=== PATIENT | female | born 1950 | race Caucasian/White ===

== ENCOUNTER 2018-03-21 19:41 | Emergency (ER) | payer MEDICARE ==
[~2018-03-21] VITALS: Ht 157.5 cm; Wt 77.0 kg
[~2018-03-21 19:41] MED LIST: DIOV80TA4 PO; FENO50TA PO; FOSA35TA2 PO; LEVEMIR SQ; PROT40TA PO; ROSU5 PO; SUCR1TAB6 PO; VITA400C28 PO; ZOFR4SOL PO
[2018-03-21 19:46] VITALS: BP 169/82; PULSE 101; RESP 18; TEMP 97.9; O2SAT 96
--- NOTE | 2018-03-21 21:08 | PD ---
HPI Chief Complaint: Abnormal Results Time Seen by Provider: 21:06 Travel History International Travel<30 days: No Contact w/Intl Traveler<30days: No Traveled to known affect area: No History of Present Illness HPI Patient has a long-standing list of complaints that are mainly unhappiness towards her primary care doctor [facility] F[facility]. Finally after approximately 30 minutes of redirecting and questioning, the patient states that she noted blood in her stool, and crampy abdominal pain, denies being on any blood thinners. Denies any nausea or vomiting associated with these symptoms... Patient is very inquisitive however she keeps asking abouT previous complaints and not any active complaints. For example the patient stated that she has MRSA on both legs and that she has been on 3 different antibiotics and that she was told that she was resistant. Patient does not have any red rash or rash anywhere in her body, she was merely bringing up a historical fact. Patient did the same about multiple other complaints including fever, which after repeated temperature taken in triage and in department the patient was not febrile. States allergy to chlorpromazine metoclopramide and prochlorperazine Past medical history significant for tonsillectomy, corrective lenses, Kalen- Low, hypercholesterolemia, hypertension, gastroparesis, esophageal dilations, appendectomy, cholecystectomy, GERD, partial hysterectomy, diabetes, depression , claustrophobia, anxiety, shingles, previous MRSA infections to her lower extremities PFSH Past Medical History Arthritis: Yes (OSTEOARTHRITIS) Anxiety: Yes Depression: Yes High Cholesterol: Yes Diabetes: Yes Diminished Hearing: No GERD: Yes (GERD) Genitourinary: No Hypertension: Yes Musculoskeletal: Yes (CARPAL TUNNEL) Respiratory: No Seizures: Yes (REACTION TO COMPAZINE) Menopausal: Yes Tubal Ligation: Yes (1977) Past Surgical History Abdominal Surgery: Yes (APPENDECTOMY, CHOLECYSTECTOMY) Appendectomy: Yes Cholecystectomy: Yes Gynecologic Surgery: Yes (PARTIAL HYSTERECTOMY, TUBAL LIGATION) Hysterectomy: Yes ( ) Oral Surgery: Yes (TONSILLECTOMY) Tonsillectomy: Yes Other Surgery: Yes (1979--RHINOPLASTY) Social History Alcohol Use: No Tobacco Use: No Substance Use: No Allergies-Medications (Allergen,Severity, Reaction): Coded Allergies: chlorpromazine (Verified Allergy, Severe, SEIZURES, 03/21/18) metoclopramide (Verified Allergy, Severe, SEIZURE, 03/21/18) prochlorperazine (Verified Allergy, Severe, SEIZURES, 03/21/18) Reported Meds & Prescriptions Reported Meds & Active Scripts Active Reported Amlodipine-Valsartan 10-320 Mg Tab 1 Tab PO DAILY Tresiba Flextouch Pen Inj (Insulin Degludec Inj) 300 unit/3 ML Pen 40 Units SQ DAILY Tradjenta (Linagliptin) 5 Mg Tab 5 Mg PO DAILY Allopurinol 300 Mg Tab 300 Mg PO DAILY Simvastatin 40 Mg Tab 40 Mg PO HS Review of Systems Gastrointestinal: Positive: Abdominal Pain (Single crampy abdominal episode, nonradiating, not repeatable), Other (Blood in stool) Physical Exam Narrative GENERAL: SKIN: Warm and dry. No evidence of any cellulitic/lymphangitic/ changes to her bilateral lower extremities. HEAD: Atraumatic. Normocephalic. EYES: Pupils equal and round. No scleral icterus. No injection or drainage. ENT: No nasal bleeding or discharge. Mucous membranes pink and moist. NECK: Trachea midline. No JVD. CARDIOVASCULAR: Regular rate and rhythm. RESPIRATORY: No accessory muscle use. Clear to auscultation. Breath sounds equal bilaterally. GASTROINTESTINAL: Abdomen soft, non-tender, nondistended. LORRAINE Hooper at bedside , external rectal exam showed non-thrombotic hemorrhoids also nonbleeding. Digital rectal exam did not reveal any gross blood, and guaiac was negative MUSCULOSKELETAL: Extremities without clubbing, cyanosis, or edema. No obvious deformities. NEUROLOGICAL: Awake and alert. No obvious cranial nerve deficits. Motor grossly within normal limits. Five out of 5 muscle strength in the arms and legs. Normal speech. PSYCHIATRIC: Appropriate mood and affect; insight and judgment normal. Data Data Last Documented VS Vital Signs Date Time Temp Pulse Resp B/P (MAP) Pulse Ox O2 Delivery O2 Flow Rate FiO2 03/21/18 21:10 Room Air 03/21/18 19:46 97.9 101 18 169/82 (111) 96 Orders Orders Complete Blood Count With Diff (03/21/18 21:31) Comprehensive Metabolic Panel (03/21/18 21:31) Prothrombin Time / Inr (Pt) (03/21/18 21:31) Act Partial Throm Time (Ptt) (03/21/18 21:31) Labs Laboratory Tests Test 6/3/18 22:12 White Blood Count 8.0 TH/MM3 Red Blood Count 4.81 MIL/MM3 Hemoglobin 13.3 GM/DL Hematocrit 39.9 % Mean Corpuscular Volume 82.9 FL Mean Corpuscular Hemoglobin 27.6 PG Mean Corpuscular Hemoglobin Concent 33.3 % Red Cell Distribution Width 13.3 % Platelet Count 279 TH/MM3 Mean Platelet Volume 7.7 FL Neutrophils (%) (Auto) 64.6 % Lymphocytes (%) (Auto) 24.6 % Monocytes (%) (Auto) 8.1 % Eosinophils (%) (Auto) 2.0 % Basophils (%) (Auto) 0.7 % Neutrophils # (Auto) 5.0 TH/MM3 Lymphocytes # (Auto) 2.0 TH/MM3 Monocytes # (Auto) 0.7 TH/MM3 Eosinophils # (Auto) 0.2 TH/MM3 Basophils # (Auto) 0.1 TH/MM3 CBC Comment DIFF FINAL Differential Comment MDM Medical Decision Making Medical Screen Exam Complete: Yes Emergency Medical Condition: Yes Medical Record Reviewed: Yes Differential Diagnosis Rectal bleed versus GI bleed versus anemia versus pancreatitis versus hepatitis versus electrolyte abnormality Narrative Course Patient had a negative guaiac, H&H was stable and did not show any evidence of anemia, patient's abdominal exam benign on reevaluation as well as an initial examination. Additionally the patient has no cellulitic changes to her bilateral lower extremities. All of these different complaints at the patient brought on today are all chronic and has been going on for at least 6 weeks. Patient is recommended to follow-up with her primary care doctor [facility], should she be unhappy with his care and she can switch to any other physician. However today there are no urgent nor emergent conditions that require further evaluation. Diagnosis Primary Impression: Medical clear Patient Instructions: General Instructions Additional Instructions: It is recommended that you follow-up with your doctor or with your choice of new DrDarrick THE case MAYBE. Today YOU did not have any blood on your stool, you are not anemic, he had normal electrolytes, you had normal liver enzymes, you had normal pancreatic enzymes. Disposition: 01 DISCHARGE HOME Condition: Stable Roshan Yoder MD Mar 21, 2018 21:08
[2018-03-21] MEDS ORDERED: INSU1INJ14 SQ (22:20)
[2018-03-21] MEDS ORDERED: SIMV40TA PO (22:20)
[2018-03-21] MEDS ORDERED: TRAD5TAB PO (22:20)
[2018-03-21] MEDS ORDERED: ALLO300T2 PO (22:20)
[2018-03-21] MEDS ORDERED: AMLO-172 PO (22:20)
[2018-03-21 22:28] LABS: BASOPHIL # 0.1 TH/MM3 (0-0.2); BASOPHIL % 0.7 % (0.0-2.0); EOSINOPHIL # 0.2 TH/MM3 (0-0.4); HEMATOCRIT 39.9 % (35.0-46.0); HEMOGLOBIN 13.3 GM/DL (11.6-15.3); LYMPH % 24.6 % (9.0-44.0); MEAN CELL VOLUME 82.9 FL (80.0-100.0); MEAN CORPUSCULAR HEMOGLOBIN 27.6 PG (27.0-34.0); MEAN CORPUSCULAR HGB CONC 33.3 % (32.0-36.0); MEAN PLATELET VOLUME 7.7 FL (7.0-11.0); MONO % 8.1 % (0.0-8.0); MONOCYTE # 0.7 TH/MM3 (0-0.9); NEUT % 64.6 % (16.0-70.0); PLATELET COUNT 279 TH/MM3 (150-450); RED BLOOD COUNT 4.81 MIL/MM3 (4.00-5.30); RED CELL DISTRIBUTION WIDTH 13.3 % (11.6-17.2)
[2018-03-21 22:35] LABS: CHLORIDE 105 MEQ/L (98-107); SODIUM (NA) 137 MEQ/L (136-145)
[2018-03-21 22:38] LABS: CALCIUM 9.1 MG/DL (8.5-10.1)
[2018-03-21 22:39] LABS: ALBUMIN 3.7 GM/DL (3.4-5.0); BICARBONATE 24.4 MEQ/L (21.0-32.0); BLOOD UREA NITROGEN 18 MG/DL (7-18); GLUCOSE,RANDOM 170 MG/DL (74-106)
[2018-03-21 22:42] LABS: ALT (GPT) 34 U/L (10-53); AST (GOT) 24 U/L (15-37); CREATININE 0.87 MG/DL (0.50-1.00); GLOMERULAR FILTRATION RATE 65 ML/MIN (>89); PROTHROMBIN TIME - PATIENT 10.2 SEC (9.8-11.6)
[2018-03-21 22:43] VITALS: BP 155/77; PULSE 83; RESP 16; O2SAT 97
[2018-03-21 22:43] LABS: TOTAL BILIRUBIN ADULT 0.4 MG/DL (0.2-1.0); TOTAL PROTEIN 7.4 GM/DL (6.4-8.2)
[2018-03-21 22:45] LABS: ALKALINE PHOSPHATASE 88 U/L (45-117)
== END 2018-03-21 22:57 | disposition home or self-care (01) ==
LOC: PHED 19:41
DX: E78.00 Pure hypercholesterolemia, unspecified (principal); I10 Essential (primary) hypertension; K21.9 Gastro-esophageal reflux disease without esophagitis; F41.9 Anxiety disorder, unspecified; F40.240 Claustrophobia; M19.90 Unspecified osteoarthritis, unspecified site; E11.9 Type 2 diabetes mellitus without complications; Z86.69 Personal history of other diseases of the nervous system and sense organs; Z79.899 Other long term (current) drug therapy
CPT/HCPCS: 80053; 85025; 85610; 85730; 99283

== ENCOUNTER 2018-08-27 22:14 | Observation (INO) ==
--- NOTE | 2018-08-27 22:43 | ED ---
HPI General Chief Complaint: Extremity Problem,Nontraumatic Stated Complaint: numbness in both arms/hands/speech issue Time Seen by Provider: 08/27/18 22:36 History of Present Illness HPI Narrative: 68-year-old female presents to the emergency department by private transportation for complaint of multiple concerns. Patient reports all day she has not felt well with increased diaphoresis and intermittent numbness of the hands and arms. No report of altered mentation has had some headache has history of ocular migraines denies any visual disturbance no loss of vision no double vision has had no nausea no vomiting has chronic neck pain with radiculopathy is diabetic with diabetic gastroparesis and diabetic peripheral neuropathy also reports episodic flares of Kalen-Low virus chronic fatigue. Patient states that symptoms have at least been present since noon and presently are essentially resolved except approximately hour ago she noticed symptoms in her right upper extremity that included some tingling in her arm and some numbness of the palm of her hand which resolved and then some numbness to the dorsum of her hand which is also resolved patient earlier had had numbness in the left hand that has resolved. Patient has also noted swelling of her hands today as well, although to a lesser extent at this time. Patient states she has had swelling of her feet for 2 years that "no one can explain". Patient also reports that she had some difficulty finding her words at the same time but that has also completely resolved. No slurring of speech no change in balance no loss of function of the right upper or lower extremity or loss of function of the left upper or lower extremity. No gait disturbance. Patient has had no fever or chills. 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 Patient states she discussed her symptoms with her neighbor who said she might have a TIA and that she should come to the hospital and call her daughter patient states she did not want to call her daughter but was convinced by her neighbor to do so so called her daughter who brings her to the emergency room. Patient has had no difficulty with ambulation but is able to transition from department wheelchair to exam bed without difficulty then stand and change her close wall disturbing fluent speech providing history without difficulty. Patient denies tobacco use or alcohol use. Patient also has history of hypertension and dyslipidemia as well as diabetes. Related Data Home Medications Medication Instructions Recorded Confirmed Tresiba FlexTouch U-100 40 - 80 unit SUBDERMAL BID 07/21/18 08/27/18 linagliptin [Tradjenta] 5 mg PO DAILY 07/21/18 08/27/18 simvastatin 40 mg PO QPM 07/21/18 08/27/18 diltiazem HCl [Cartia XT] 120 mg PO DAILY 08/27/18 08/27/18 irbesartan [Avapro] 300 mg PO DAILY 08/27/18 08/27/18 Allergies Allergy/AdvReac Type Severity Reaction Status Date / Time chlorpromazine Allergy Severe SEIZURES Verified 08/27/18 23:42 metoclopramide Allergy Severe SEIZURE Verified 08/27/18 23:42 prochlorperazine Allergy Severe SEIZURES Verified 08/27/18 23:42 [facility] Social History Social History Substance History: No History of Abuse Second Hand Smoke Exposure: No Smoking Status: Never smoker How Often Do You Have a Drink Containing Alcohol: Never Recent Travel in [facility] within the Last 8 Weeks: No Recent Out of Country Travel within the Last 8 Weeks: No Exam Narrative Exam Narrative: GENERAL: Well-developed well-nourished animated female in no acute distress no respiratory distress GCS 15 NIH SS 0 SKIN: Focused skin assessment warm/dry. HEAD: Atraumatic. Normocephalic. EYES: Pupils equal and round. No scleral icterus. No injection or drainage. ENT: No nasal bleeding or discharge. Mucous membranes pink and moist. NECK: Trachea midline. No JVD. CARDIOVASCULAR: Regular rate and rhythm. No murmur appreciated. RESPIRATORY: No accessory muscle use. Clear to auscultation. Breath sounds equal bilaterally. GASTROINTESTINAL: Abdomen soft, non-tender, nondistended. Hepatic and splenic margins not palpable. MUSCULOSKELETAL: No obvious deformities. No clubbing. No cyanosis. No edema. NEUROLOGICAL: Awake and alert. No obvious cranial nerve deficits. Motor grossly within normal limits. Sensory exam intact. No limb ataxia. No pronator drift. Normal speech. PSYCHIATRIC: Appropriate mood and affect; insight and judgment normal. Course Consultations Consultation #1: discussed with DR Nagel --OBS to [facility] service Initial Documented Vital Signs Pulse Rate 76 08/27/18 22:20 Respiratory Rate 16 08/27/18 22:20 Blood Pressure 180/81 H 08/27/18 22:20 Pulse Oximetry 98 08/27/18 22:20 Last Documented Vital Signs Temperature 98.5 F 08/27/18 22:21 Pulse Rate 78 08/28/18 00:00 Respiratory Rate 16 08/28/18 00:00 Blood Pressure 197/97 H 08/28/18 00:00 Pulse Oximetry 98 08/28/18 00:00 NIH Stroke Scale NIH Stroke Scale Level of Consciousness: 0-Alert Orientation Questions: 0-Answers both correct Responds to Commands: 0-Both tasks correct Gaze Eye Movement: 0-Horizontal movement WNL Visual Domingo: 0-No visual field defect Facial Movement: 0-Normal Motor Functions Arm LEFT: 0-No drift Motor Functions Arm RIGHT: 0-No drift Motor Functions Leg LEFT: 0-No drift Motor Functions Leg RIGHT: 0-No drift Limb Ataxia: 0-No ataxia Sensory Loss: 0-No sensory loss Best Language: 0-Normal Articulation: 0-Normal Extinction or Inattention Sensory: 0-Absent Total: 0 Medical Decision Making MDM Narrative Medical decision making narrative: 68-year-old female with history of diabetes hypertension dyslipidemia anxiety depression chronic fatigue syndrome Kalen- Low virus diabetic neuropathy diabetic gastroparesis and ocular migraines presents to the emergency department for complaint of being plugged with chronic pain and numbness issues and noting since earlier today feeling tired fatigued diaphoretic and noontime having some numbness and tingling of the left upper extremity and then approximate hour ago reportedly having transient numbness tingling of the right upper extremity with possibly a brief episode of expressive aphasia. The symptoms have resolved and patient has no speech issues and no focality on physical exam with an NIH score of 0. Patient is diabetic and denies known history of rhythm disturbance and takes no blood thinning agents. Patient placed on athletic monitor IV access obtained specimens collected and sent for resulting including glucose. CT brain noncontrast ordered. Patient is not showing evidence of any neurologic deficit and is not a stroke alert. Patient returns from CT talking on her cell phone continuously uses right upper extremity to hold phone without difficulty or issues with manipulating the device. CT brain noncontrast is read as no acute process; CBC is automated differential mild white count elevation; basic metabolic panel in normal range with blood sugar 132. EKG sinus rhythm no acute injury injury pattern or ectopy. BP remains elevated, did not take her medications today including her BP medications, (takes BP meds as needed). At 12:15 AM patient also reports that transiently she also experienced amnestic event that has subsequently resolved as well as her event with possible expressive aphasia. Patient informed of lab values imaging results and EKG findings are found to be in normal range patient remains mildly hypertensive 197/97. Patient did not take her evening dose of antihypertensive. Call replaced to medicine service for observation admission for possible TIA Medical Screen Exam Complete: Yes Emergency Medical Condition: Yes Differential Diagnosis Differential Diagnosis: Paresthesias, cervical radiculopathy, TIA, hypoglycemia , thyroid dysfunction, arrhythmia, UTI, sepsis, seizure, migraine Medical Records Medical records reviewed: Yes I reviewed the patient's medical records. Lab Data Lab results reviewed: Yes I reviewed the patient's lab results. Result diagrams: 08/27/18 23:00 08/27/18 23:00 Lab Results 08/27/18 08/27/18 08/27/18 Range/Units 23:00 23:00 23:00 CBC w Diff Auto diff final WBC 11.8 H (4.0-11.0) th/mm3 RBC 5.35 H (4.00-5.30) mil/mm3 Hgb 15.1 (11.6-15.3) gm/dL Hct 45.2 (35.0-46.0) % MCV 84.5 (80.0-100.0) fL MCH 28.3 (27.0-34.0) pg MCHC 33.4 (32.0-36.0) % RDW 12.4 (11.6-17.2) % Plt Count 351 (150-450) th/mm3 MPV 7.5 (7.0-11.0) fL Neut % (Auto) 66.6 (16.0-70.0) % Lymph % (Auto) 25.8 (9.0-44.0) % [place] % (Auto) 5.0 (0.0-8.0) % Eos % (Auto) 1.8 (0.0-4.0) % Baso % (Auto) 0.8 (0.0-2.0) % Neut # (Auto) 7.9 H (1.8-7.7) th/mm3 Lymph # (Auto) 3.0 (1.0-4.8) th/mm3 [place] # (Auto) 0.6 (0.0-0.9) th/mm3 Eos # (Auto) 0.2 (0.0-0.4) th/mm3 Baso # (Auto) 0.1 (0.0-0.2) th/mm3 WBC Differential . Differential Comment . PT 9.7 L (9.8-11.6) sec INR 1.0 Ratio APTT 31.3 (23.4-31.7) sec Sodium 139 (136-145) meq/L Potassium 3.8 (3.5-5.1) meq/L Chloride 105 (98-107) meq/L Carbon Dioxide 27.9 (21.0-32.0) meq/L Anion Gap 6 (5-15) meq/L BUN 17 (7-18) mg/dL Creatinine 0.95 (0.50-1.00) mg/dL Estimated GFR 59 L (>89) mL/min Random Glucose 132 H (74-106) mg/dL Calcium 9.0 (8.5-10.1) mg/dL Total Creatine Kinase 101 (26-192) U/L CK-MB (CK-2) 1.6 (0.5-3.6) ng/mL Troponin I Less than 0.02 L (0.02-0.05) ng/mL TSH 1.980 (0.358-3.740) uIU/mL Imaging Data Radiologist's impression: Head CT 08/27/18 22:36 CONCLUSION: 1. Negative CT Head non contrast. . ECG Data Attestation: I personally reviewed and interpreted this ECG as follows: (EKG normal sinus rhythm rate [address] elevation injury pattern or ectopy noted evidence of age-indeterminate QS inferiorly and anteroseptally) Prior ECG tracings: not available for review Discharge Plan Discharge Disposition Patient Disposition: 30 Still Patient Discharge Condition Condition: Stable Discharge Details Diagnosis: TIA (transient ischemic attack) Physicians Team ED Provider: Kemi Lynn Primary Care Provider: Sarthak Quiles III Attending Provider: Roxie Nagel ED Status: Admitted Observation Patient
[2018-08-27 23:16] LABS: Baso # (Auto) 0.1 th/mm3 (0.0-0.2); Baso % (Auto) 0.8 % (0.0-2.0); Eos # (Auto) 0.2 th/mm3 (0.0-0.4); Eos % (Auto) 1.8 % (0.0-4.0); Hematocrit 45.2 % (35.0-46.0); Hemoglobin 15.1 gm/dL (11.6-15.3); Lymph % (Auto) 25.8 % (9.0-44.0); Mean Corpuscular HGB Conc 33.4 % (32.0-36.0); Mean Corpuscular Hemoglobin 28.3 pg (27.0-34.0); Mean Corpuscular Volume 84.5 fL (80.0-100.0); Mean Platelet Volume 7.5 fL (7.0-11.0); Mono # (Auto) 0.6 th/mm3 (0.0-0.9); Neut # (Auto) 7.9 th/mm3 (1.8-7.7); Neut % (Auto) 66.6 % (16.0-70.0); Platelet Count 351 th/mm3 (150-450); Red Blood Count 5.35 mil/mm3 (4.00-5.30); Red Cell Distribution Width 12.4 % (11.6-17.2); White Blood Count 11.8 th/mm3 (4.0-11.0)
--- NOTE | 2018-08-27 23:30 | CT ---
EXAM DATE: 08/27/2018 11:18 PM EST AGE/SEX: 68 years / Female INDICATIONS: Weakness. CLINICAL DATA: This is the patient's initial encounter. Patient reports that signs and symptoms have been present for 1 day and indicates a pain score of 2/10. MEDICAL/SURGICAL HISTORY: Gastroesophageal reflux disease. Diabetes. Edema. Kalen Low infection. Gout. Hearing loss. Heart murmur. High cholesterol. Hypertension. Cholecystectomy. Tonsillectomy. Rhinoplasty. Tubal ligation. Appendectomy. RADIATION DOSE: 49.23 CTDI (mGy) COMPARISON: No prior exams available for comparison. TECHNIQUE: CT of the head without contrast. Using automated exposure control and adjustment of the mA and/or kV according to patient size, radiation dose was kept as low as reasonably achievable to ob tain optimal diagnostic quality images. DICOM format image data is available electronically for revi ew and comparison. FINDINGS: Cerebrum: The ventricles are normal for age. No evidence of midline shift, mass lesion, hemorrhage or acute infarction. No extraaxial fluid collections are seen. Posterior Fossa: The cerebellum and brainstem are intact. The 4th ventricle is midline. The cerebe llopontine angle is unremarkable. Extracranial: The visualized portion of the orbits is intact. Skull: The calvaria is intact. No evidence of skull fracture. CONCLUSION: 1. Negative CT Head non contrast. . Electronically signed by: Negro Webb MD 08/27/2018 11:29 PM EST
[2018-08-27 23:31] LABS: Chloride 105 meq/L (98-107); Potassium 3.8 meq/L (3.5-5.1); Sodium 139 meq/L (136-145)
[2018-08-27 23:35] LABS: Anion Gap 6 meq/L (5-15); Blood Urea Nitrogen 17 mg/dL (7-18); Carbon Dioxide 27.9 meq/L (21.0-32.0); Glucose,Random 132 mg/dL (74-106)
[2018-08-27 23:38] LABS: Glomerular Filtration Rate 59 mL/min (>89)
[2018-08-27 23:40] LABS: Activated Partial Thrombo Time 31.3 sec (23.4-31.7); Prothrombin Time 9.7 sec (9.8-11.6)
[2018-08-27 23:41] LABS: Creatine Kinase 101 U/L (26-192)
[2018-08-27 23:54] LABS: Creatine Kinase MB 1.6 ng/mL (0.5-3.6)
[2018-08-28] MEDS ORDERED: Dextrose 50% in Water 50 ML Vial IV.PUSH PRN (00:26)
[2018-08-28] MEDS ORDERED: Acetaminophen 325 MG Tablet PO PRN (00:27)
[2018-08-28] MEDS ORDERED: Bisacodyl 10 MG Supp RECTAL PRN (00:27)
[2018-08-28] MEDS: Sod Chloride 0.9% Inj 1,000 ML IV.CONT SCH ×3 (00:59→21:43)
[2018-08-28 03:38] LABS: Bilirubin,Urine Negative (Negative); Clarity,Urine Clear (Clear); Color,Urine Yellow (Yellw/Straw); Glucose,Urine (UA) Negative (Negative); Leukocyte Esterase,Urine Moderate (Negative); Nitrite,Urine Negative (Negative); Urobilinogen,Urine 0.2 mg/dL (Less than 2)
[2018-08-28 03:44] LABS: RBC,Urine 0-3 /hpf (0-3); Squamous Epithelial Cell,Urine 0-5 /hpf (0-5); WBC,Urine 21-50 /hpf (0-5)
[2018-08-28 03:46] LABS: Amphetamine Screen,Urine Neg (Neg); Barbiturate Screen,Urine Neg (Neg); Cannabinoid Screen,Urine Neg (Neg); Cocaine Screen,Urine Neg (Neg)
[2018-08-28 03:48] LABS: Opiate Screen,Urine Neg (Neg)
[2018-08-28] MEDS: Insulin NovoLOG Aspart Correctional Sugar Inj SQ SCH ×4 (08:01→21:36)
[2018-08-28] MEDS: Senna/Docusate Sodium 8.6/50 MG Tablet PO SCH ×2 (08:38→21:35)
--- NOTE | 2018-08-28 10:08 | ECG ---
Date Performed: 08/27/2018 Time Performed: 22:46:25 PTAGE: 68 years EKG: Sinus rhythm POSSIBLE LEFT ATRIAL ENLARGEMENT LOW QRS VOLTAGE IN PRECORDIAL LEADS POSSIBLE ANTERIOR MYOCARDIAL IN FARCTION INFERIOR MYOCARDIAL INFARCTION ABNORMAL ECG No significant change from prior electrocardiogr am. PREVIOUS TRACING : 07/21/2018 15.52 DOCTOR: Jefferson Garcia Interpretating Date/Time 08/28/2018 10:06:52
--- NOTE | 2018-08-28 10:20 | P.HP ---
History of Present Illness Service: Ms. Bowen is a pleasant 68-year-old female with a history of diabetes mellitus, hypertension, arthritis who presents to the emergency department on 08/27/2018 due to intermittent numbness of her left and right upper extremities as well as significant diaphoresis. She went to [employer] to shop. She experienced more than usual forgetfulness as well. When she was at the [employer] parking lot, she was extremely diaphoretic. Her blood glucose was in the 120s. Later in the day at home she was having difficulty speaking and finding words. She was mispronouncing words. And subsequently her neighbor came to help and patient presented to the emergency department after that. Patient denies any chest pain, shortness of breath, fever or chills. Denies any changes in bowel or bladder habits. Past medical history: Ophthalmic migraine, thyroid nodules, GERD, diabetes mellitus, hypertension, hyperlipidemia, arthritis Past surgical history: Cholecystectomy, partial hysterectomy, appendectomy Social history: Patient denies using tobacco or alcohol. Family history: Mother has mental illness. Dad had COPD and stroke. Primary Care Physician: Sarthak Quiles III, MD Review of Systems All other systems reviewed negative except as stated in HPI PMFSH - History History Provided By: Patient - Medical History Medical History: Medical History (Last Reviewed 08/28/18 @ 10:05 by Wandy Diane DO) Diabetes Diabetic gastroparesis Edema Kalen Low infection GERD (gastroesophageal reflux disease) Gout HTN (hypertension) Hearing loss Heart murmur High cholesterol Neuropathy Osteoarthritis Vision problem - Surgical History Surgical History: Surgical History (Last Reviewed 08/28/18 @ 10:05 by Wandy Diane DO) H/O cataract removal with insertion of prosthetic lens H/O rhinoplasty H/O tubal ligation History of appendectomy History of partial hysterectomy Hx of cholecystectomy Hx of tonsillectomy - Tobacco History Second Hand Smoke Exposure: Yes Tobacco Use In Past 30 Days: No Smoking Status: Never smoker - Alcohol History How Often Do You Have a Drink Containing Alcohol: Never - Substance Use History Substance History: No History of Abuse - Travel History Recent Travel in the [facility] Within the Last 8 Weeks: No Recent Travel Out of the Country Within the Last 8 Weeks: No - Immunization History Tetanus Immunization: Unsure Medications and Allergies Active Medications: Active Medications Acetaminophen (Tylenol) 650 mg PO Q4H PRN PRN Reason: Temp > 100.4 Al Hydroxide/Mg Hydroxide (Milk Of Magnesia Liq) 30 ml PO Q12H PRN PRN Reason: Mild Constipation Aspirin (Ecotrin) 81 mg PO DAILY [facility] Last Admin: 08/28/18 08:37 Dose: 81 mg Bisacodyl (Dulcolax Supp) 10 mg RECTAL DAILY PRN PRN Reason: SEVERE CONSITIPATION Dextrose (D50w Vial) 50 ml IV.PUSH UNSCH PRN PRN Reason: PER HYPOGLYCEMIA PROTOCOL Glucagon (Glucagon Inj) 1 mg OTHER PRN PRN PRN Reason: for Hypoglycemia Protocol Sodium Chloride (Ns Inj) 1,000 mls @ 100 mls/hr IV.CONT .Q10H [facility] Last Admin: 08/28/18 00:59 Dose: 100 mls/hr Insulin Aspart (Novolog Insulin Correctional Sugar Inj) 0 unit SQ ACHS [facility]; Protocol Last Admin: 08/28/18 08:01 Dose: Not Given Lactulose (Lactulose Liq) 30 ml PO DAILY PRN PRN Reason: SEVERE CONSITIPATION Ondansetron HCl (Zofran Inj) 4 mg IV.PUSH Q6H PRN PRN Reason: NAUSEA OR VOMITING Pravastatin Sodium (Pravachol) 80 mg PO QPM [facility] Senna/Docusate Sodium (Renate-Colace) 1 tab PO BID [facility] Last Admin: 08/28/18 08:38 Dose: Not Given Sennosides (Senokot) 17.2 mg PO Q12H PRN PRN Reason: Moderate Constipation Sodium Chloride (Ns Flush) 2 ml IV.FLUSH PRN PRN PRN Reason: FLUSH AFTER USING IV ACCESS Allergies Allergy/AdvReac Type Severity Reaction Status Date / Time chlorpromazine Allergy Severe SEIZURES Verified 08/27/18 23:42 metoclopramide Allergy Severe SEIZURE Verified 08/27/18 23:42 prochlorperazine Allergy Severe SEIZURES Verified 08/27/18 23:42 Home Medications Medication Instructions Recorded Confirmed Type Tresiba FlexTouch U-100 40 - 80 unit SUBDERMAL BID 07/21/18 08/27/18 History linagliptin [Tradjenta] 5 mg PO DAILY 07/21/18 08/27/18 History simvastatin 40 mg PO QPM 07/21/18 08/27/18 History diltiazem HCl [Cartia XT] 120 mg PO DAILY 08/27/18 08/27/18 History irbesartan [Avapro] 300 mg PO DAILY 08/27/18 08/27/18 History Exam Vital signs: Vital Signs 08/27/18 22:20 08/27/18 22:21 08/28/18 00:00 Temperature 98.5 F Pulse Rate 89 90 78 Respiratory Rate 16 16 16 Blood Pressure 180/81 H 201/93 H 197/97 H Pulse Oximetry 98 98 08/28/18 00:50 08/28/18 01:15 08/28/18 01:46 Temperature Pulse Rate 86 85 68 Respiratory Rate 16 18 16 Blood Pressure 171/100 H 171/100 H 134/65 Pulse Oximetry 99 98 98 08/28/18 03:42 08/28/18 03:43 08/28/18 07:51 Temperature 96.6 F L 95.9 F L Pulse Rate 70 74 72 Respiratory Rate 18 18 Blood Pressure 184/86 H 194/85 H Pulse Oximetry 99 08/28/18 07:54 Temperature Pulse Rate Respiratory Rate Blood Pressure Pulse Oximetry 99 Intake & Output 08/27/18 08/28/18 08/28/18 18:59 06:59 18:59 Intake Total 300 / 300 Balance 300 / 300 Weight 74.5 kg Intake: Other 300 / 300 Other: Other Intake Source Saline Solution # Voids 1 Weight On Admission 74.5 kg Narrative: GENERAL: This is a well-nourished, well-developed patient, in no apparent distress. SKIN: No rashes, ecchymoses or lesions. Warm and dry. HEAD: Atraumatic. Normocephalic. No temporal or scalp tenderness. EYES: Pupils equal round and reactive. No injection or drainage. ENT: Nose without bleeding, purulent drainage or septal hematoma. Airway patent. NECK: Trachea midline. No lymphadenopathy. Supple, nontender, no meningeal signs. CARDIOVASCULAR: Regular rate and rhythm without murmurs, gallops, or rubs. No JVD. RESPIRATORY: Clear to auscultation. Breath sounds equal bilaterally. No wheezes , rales, or rhonchi. GASTROINTESTINAL: Abdomen soft, non-tender, nondistended. No guarding. MUSCULOSKELETAL: Extremities without clubbing, cyanosis, or edema. NEUROLOGICAL: Awake and alert. Cranial nerves II through XII intact. No focal neurological deficits. Normal speech. Results - Labs CBC & Chem 7: 08/27/18 23:00 08/27/18 23:00 Labs: Laboratory Results - last 24 hr 08/27/18 08/27/18 08/27/18 23:00 23:00 23:00 CBC w Diff Auto diff final WBC 11.8 H RBC 5.35 H Hgb 15.1 Hct 45.2 MCV 84.5 MCH 28.3 MCHC 33.4 RDW 12.4 Plt Count 351 MPV 7.5 Neut % (Auto) 66.6 Lymph % (Auto) 25.8 [place] % (Auto) 5.0 Eos % (Auto) 1.8 Baso % (Auto) 0.8 Neut # (Auto) 7.9 H Lymph # (Auto) 3.0 [place] # (Auto) 0.6 Eos # (Auto) 0.2 Baso # (Auto) 0.1 WBC Differential . Differential Comment . PT 9.7 L INR 1.0 APTT 31.3 Sodium 139 Potassium 3.8 Chloride 105 Carbon Dioxide 27.9 Anion Gap 6 BUN 17 Creatinine 0.95 Estimated GFR 59 L POC Glucose Random Glucose 132 H Calcium 9.0 Total Creatine Kinase 101 CK-MB (CK-2) 1.6 Troponin I Less than 0.02 L TSH 1.980 Urine Color Urine Clarity Urine pH Ur Specific [place] Urine Protein Urine Glucose (UA) Urine Ketones Urine Occult Blood Urine Nitrate Urine Bilirubin Urine Urobilinogen Ur Leukocyte Esterase Urine RBC Urine WBC Urine WBC Clumps Ur Squamous Epith Cells Micro UA Comment Ur Microscopic Review Urine Culture Comments Urine Opiates Screen Ur Barbiturates Screen Ur Amphetamines Screen U Benzodiazepines Scrn Urine Cocaine Screen U Cannabinoids Screen 08/28/18 08/28/18 08/28/18 03:00 03:00 07:40 CBC w Diff WBC RBC Hgb Hct MCV MCH MCHC RDW Plt Count MPV Neut % (Auto) Lymph % (Auto) [place] % (Auto) Eos % (Auto) Baso % (Auto) Neut # (Auto) Lymph # (Auto) [place] # (Auto) Eos # (Auto) Baso # (Auto) WBC Differential Differential Comment PT INR APTT Sodium Potassium Chloride Carbon Dioxide Anion Gap BUN Creatinine Estimated GFR POC Glucose 112 H Random Glucose Calcium Total Creatine Kinase CK-MB (CK-2) Troponin I TSH Urine Color Yellow Urine Clarity Clear Urine pH 6.0 Ur Specific [place] 1.010 Urine Protein Negative Urine Glucose (UA) Negative Urine Ketones Negative Urine Occult Blood Negative Urine Nitrate Negative Urine Bilirubin Negative Urine Urobilinogen 0.2 Ur Leukocyte Esterase Moderate H Urine RBC 0-3 Urine WBC 21-50 H Urine WBC Clumps Moderate H Ur Squamous Epith Cells 0-5 Micro UA Comment Culture indicated Ur Microscopic Review Microscopic reviewed Urine Culture Comments Culture indicated Urine Opiates Screen Neg Ur Barbiturates Screen Neg Ur Amphetamines Screen Neg U Benzodiazepines Scrn Neg Urine Cocaine Screen Neg U Cannabinoids Screen Neg - Imaging Impressions Head CT 08/27/18 22:36 CONCLUSION: 1. Negative CT Head non contrast. . Caprini VTE Risk Assessment Caprini VTE Risk Assessment: No/Low Risk (score <= 1) Caprini Risk Assessment Model: Point Value = 1 Point Value = 2 Point Value = 3 Point Value = 5 Age 41-60 Minor surgery BMI > 25 kg/m2 Swollen legs Varicose veins or History of unexplained or recurrent spontaneous Oral contraceptives or hormone replacement Sepsis (< 1 month) Serious lung disease, including pneumonia (< 1 month) Abnormal pulmonary function Acute myocardial infarction Congestive heart failure (< 1 month) History of inflammatory bowel disease Medical patient at bed rest Age 61-74 Arthroscopic surgery Major open surgery (> 45 min) Laparoscopic surgery (> 45 min) Malignancy Confined to bed (> 72 hours) Immobilizing plaster cast Central venous access Age >= 75 History of VTE Family history of VTE Factor V Leiden Prothrombin [id number] Lupus anticoagulant Anticardiolipin antibodies Elevated serum homocysteine Heparin-induced thrombocytopenia Other congenital or acquired thrombophilia Stroke (< 1 month) Elective arthroplasty Hip, pelvis, or leg fracture Acute spinal cord injury (< 1 month) Prophylaxis Regimen: Total Risk Factor Score Risk Level Prophylaxis Regimen 0-1 Low Early ambulation 2 Moderate Order ONE of the following: *Sequential Compression Device (SCD) *Heparin 5000 units SQ BID 3-4 Higher Order ONE of the following medications: *Heparin 5000 units SQ TID *Enoxaparin/Lovenox 40 mg SQ daily (WT < 150 kg, CrCl > 30 mL/min) *Enoxaparin/Lovenox 30 mg SQ daily (WT < 150 kg, CrCl > 10-29 mL/min) *Enoxaparin/Lovenox 30 mg SQ BID (WT < 150 kg, CrCl > 30 mL/min) AND/OR *Sequential Compression Device (SCD) 5 or more Highest Order ONE of the following medications: *Heparin 5000 units SQ TID (Preferred with Epidurals) *Enoxaparin/Lovenox 40 mg SQ daily (WT < 150 kg, CrCl > 30 mL/min) *Enoxaparin/Lovenox 30 mg SQ daily (WT < 150 kg, CrCl > 10-29 mL/min) *Enoxaparin/Lovenox 30 mg SQ BID (WT < 150 kg, CrCl > 30 mL/min) AND *Sequential Compression Device (SCD) Assessment and Plan - Plan Ms. Garcia is a pleasant 68-year-old female with a history of diabetes mellitus who presented to the emergency department due to bilateral upper extremity intermittent tingling and pain as well as forgetfulness. She also had some dysarthria and word finding difficulties. CT scan shows no acute abnormalities. Bilateral upper extremity tingling, pain Dysarthria -CT head unremarkable for no acute findings. -Patient is unable to undergo MRI studies. She would prefer to do open MRI in the outpatient setting. -Continue aspirin, statin. Neurology consult pending. -Patient's symptoms are very likely due to hypoglycemic episode rather than a stroke. Diabetes mellitus -Patient takes Tresiba as well as Tradjenta -We will continue sliding scale insulin while she is in the hospital. Goal blood glucose 140-180. Hypertension Hyperlipidemia -Patient is currently on permissive hypertension due to possible stroke. However the suspicion for stroke is low. -Will start patient on captopril to maintain blood pressure around 160s systolic. -Continue statin. -Patient takes diltiazem 120 mg daily. However she does not have any history of atrial fibrillation. She was a started on this medication for blood pressure. -Carvedilol may be a better choice to control tachycardia as well as hypertension. Full code, SCDs.
--- NOTE | 2018-08-28 15:02 | US ---
EXAM DATE: 08/28/2018 2:33 PM EST AGE/SEX: 68 years / Female INDICATIONS: Transient ischemic attack. CLINICAL DATA: This is the patient's initial encounter. Patient reports that signs and symptoms have been present for 1 day and indicates a pain score of 0/10. MEDICAL/SURGICAL HISTORY: . Diabetes. Diabetic gastroparesis. Edema. Kalen Low infection. Gastroesophageal reflux disease. Gout. Hearing loss. Heart murmur. Hypercholesterolemia. Hyper tension. Neuropathy. Osteoarthritis. Vision problem. . Cataract removal with insertion of prosthe tic lens. Rhinoplasty. Tubal ligation. Appendectomy. Partial hysterectomy. Cholecystectomy. Ton sillectomy. COMPARISON: No prior exams available for comparison. VELOCITY PARAMETERS: ICA/CCA Ratio: Right 0.7 , Left 1.2 ICA: Right 57 cm/sec, Left 93 cm/sec CCA: Right 81 cm/sec, Left 75 cm/sec ECA: Right 74 cm/sec, Left not visualized. cm/sec Vertebral: Right 53 cm/sec antegrade, Left 40 cm/sec antegrade FINDINGS: Right Carotid: No significant plaque is visualized.The waveforms are within normal limits. Left Carotid: No significant plaque is visualized. The waveforms are within normal limits. Other: None. CONCLUSION: 1. Right Internal Carotid Artery: No significant plaque or narrowing. 2. Left Internal Carotid Artery: No significant plaque or narrowing. Electronically signed by: Momo Kramer MD 08/28/2018 3:01 PM EST
--- NOTE | 2018-08-28 18:48 | MB ---
cc: Scotty hTibodeaux MD, PhD DATE: 08/28/2018 REASON FOR CONSULTATION: TIA. HISTORY OF PRESENT ILLNESS: Ms. Garcia is a very nice 68-year-old woman who yesterday, had an episode while at [facility] where she suddenly became confused. She left her groceries on the checkout line and was walking outside with her cart. She was able to drive home, but then she called her daughter. She had speech difficulty, trouble getting words out. Was very hesitant and her daughter states that when she did get words out, they did not make sense, very confused. She had some numbness in the right arm as well and some swelling. Her symptoms have resolved. She feels back to normal, but her daughter feels that she is still having some mild hesitancy of her speech, not being as quick as normal. PAST MEDICAL HISTORY: She has a history of diabetes, hypertension. No previous stroke or TIA symptomatology. PAST MEDICAL HISTORY: History of ophthalmic migraine, thyroid nodules, GERD, diabetes, hypertension, hyperlipidemia, cholecystectomy, partial hysterectomy, appendectomy, EBV infection, neuropathy, rhinoplasty, cholecystectomy. NEUROLOGIC EXAMINATION: VITAL SIGNS: Blood pressure is 184/86, pulse 74, respirations 18, temperature 96 degrees. NEUROLOGIC: Higher cortical functions at this time normal. Her speech appears to be normal to me at this time, normal fluency, normal comprehension. Cranial nerves 2-12 are normal. Motor exam: No focal deficits. Reflexes are symmetric. IMAGING STUDIES: CT brain normal. The patient states she cannot tolerate an MRI of the brain, carotid ultrasound is normal. No significant carotid stenosis. Echo pending. Electrocardiogram possible left atrial enlargement, low QRS voltage, sinus rhythm. LABORATORY DATA: White count is 11,800, hemoglobin 15.1, hematocrit 45%, platelet count 351,000. PT 9.7, INR 1, aPTT 31.3. Sodium is 139, potassium 3.8, chloride 105, CO2 27.9. The BUN is 17, creatinine 0.95, GFR is 59, glucose 112. CPK 101. IMPRESSION: Transient ischemic attack, now resolved. RECOMMENDATIONS: Aspirin 325 mg daily. Follow up on the echocardiogram. We will check a lipid panel as well. The patient would benefit from outpatient long-term monitor and storage bin tender, rule out atrial fibrillation. Scotty Thibodeaux MD, PhD PONCHO/teri , 03:50 PM , 03:56 PM
[2018-08-29 06:47] LABS: Chloride 112 meq/L (98-107); Potassium 3.7 meq/L (3.5-5.1); Sodium 145 meq/L (136-145)
[2018-08-29 06:51] LABS: Albumin 3.4 g/dL (3.4-5.0); Anion Gap 7 meq/L (5-15); Calcium 8.4 mg/dL (8.5-10.1); Carbon Dioxide 26.5 meq/L (21.0-32.0); Glucose,Random 129 mg/dL (74-106)
[2018-08-29 06:52] LABS: Blood Urea Nitrogen 14 mg/dL (7-18)
[2018-08-29 06:54] LABS: Alanine Aminotransferase 30 U/L (10-53); Aspartate Aminotransferase 13 U/L (15-37)
[2018-08-29 06:55] LABS: Glomerular Filtration Rate 75 mL/min (>89)
[2018-08-29 06:56] LABS: Total Protein 6.7 g/dL (6.4-8.2)
[2018-08-29 06:57] LABS: Alkaline Phosphatase 98 U/L (45-117)
[2018-08-29 07:06] LABS: Baso # (Auto) 0.1 th/mm3 (0.0-0.2); Baso % (Auto) 0.8 % (0.0-2.0); Eos # (Auto) 0.2 th/mm3 (0.0-0.4); Eos % (Auto) 2.7 % (0.0-4.0); Hematocrit 41.6 % (35.0-46.0); Hemoglobin 14.2 gm/dL (11.6-15.3); Lymph # (Auto) 2.7 th/mm3 (1.0-4.8); Lymph % (Auto) 30.2 % (9.0-44.0); Mean Corpuscular HGB Conc 34.2 % (32.0-36.0); Mean Corpuscular Hemoglobin 28.4 pg (27.0-34.0); Mean Corpuscular Volume 83.1 fL (80.0-100.0); Mean Platelet Volume 7.9 fL (7.0-11.0); Mono # (Auto) 0.5 th/mm3 (0.0-0.9); Mono % (Auto) 5.8 % (0.0-8.0); Neut # (Auto) 5.3 th/mm3 (1.8-7.7); Neut % (Auto) 60.5 % (16.0-70.0); Platelet Count 330 th/mm3 (150-450); Red Blood Count 5.01 mil/mm3 (4.00-5.30); White Blood Count 8.8 th/mm3 (4.0-11.0)
[2018-08-29 09:22] LABS: Chol/HDL Ratio 5.64 Ratio; HDL Cholesterol 33.1 mg/dL (40.0-60.0)
[2018-08-29 10:01] VITALS: RESP 20; O2SAT 99
[2018-08-29] MEDS: Insulin NovoLOG Aspart Correctional Sugar Inj SQ SCH (10:13)
[2018-08-29] MEDS: Sod Chloride 0.9% Inj 1,000 ML IV.CONT SCH (10:19)
[2018-08-29] MEDS: Senna/Docusate Sodium 8.6/50 MG Tablet PO SCH (10:21)
--- NOTE | 2018-08-29 10:31 | P.PN ---
Subjective Interval history: Follow up for TIA. Patient is doing well. No acute concerns. No fever, chills. No further neurological problems. Had BM, tolerating diet well. Physical Exam Vital signs: Vital Signs 08/28/18 12:00 08/28/18 16:00 08/28/18 20:00 Temperature 97.0 F L 96.3 F L 97.3 F L Pulse Rate 82 69 72 Respiratory Rate 18 18 18 Blood Pressure 179/81 H 170/72 H 184/84 H Pulse Oximetry 97 97 97 08/28/18 20:10 08/29/18 00:00 08/29/18 00:09 Temperature 97.8 F Pulse Rate 72 65 58 L Respiratory Rate 18 Blood Pressure 158/68 H Pulse Oximetry 94 L 08/29/18 04:00 08/29/18 08:00 Temperature 96.6 F L Pulse Rate 59 L 84 Respiratory Rate 20 Blood Pressure 165/77 H Pulse Oximetry 99 Intake & Output 08/28/18 08/29/18 08/29/18 18:59 06:59 18:59 Intake Total 1000 / 1000 1000 / 1000 1000 / 1000 Balance 1000 / 1000 1000 / 1000 1000 / 1000 Weight 75.4 kg Intake: IV 1000 / 1000 1000 / 1000 1000 / 1000 NS Inj 1,000 ML @ 100 mls/hr IV 1000 / 1000 1000 / 1000 1000 / 1000 .CONT .Q10H [facility] Rx#:[id number] Other: # Voids 2 3 Date of Last Bowel Movement 08/27/18 # Bowel Movements 0 Narrative: GENERAL: This is a well-nourished, well-developed patient, in no apparent distress. SKIN: No rashes, ecchymoses or lesions. Warm and dry. HEAD: Atraumatic. Normocephalic. No temporal or scalp tenderness. EYES: Pupils equal round and reactive. No injection or drainage. ENT: Nose without bleeding, purulent drainage or septal hematoma. Airway patent. NECK: Trachea midline. No lymphadenopathy. Supple, nontender, no meningeal signs. CARDIOVASCULAR: Regular rate and rhythm without murmurs, gallops, or rubs. No JVD. RESPIRATORY: Clear to auscultation. Breath sounds equal bilaterally. No wheezes , rales, or rhonchi. GASTROINTESTINAL: Abdomen soft, non-tender, nondistended. No guarding. MUSCULOSKELETAL: Extremities without clubbing, cyanosis, or edema. NEUROLOGICAL: Awake and alert. Cranial nerves II through XII intact. No focal neurological deficits. Normal speech. Results - Labs CBC & Chem 7: 08/29/18 06:08 08/29/18 06:08 Laboratory Results - last 24 hr 08/28/18 08/28/18 08/28/18 11:38 16:44 21:34 CBC w Diff WBC RBC Hgb Hct MCV MCH MCHC RDW Plt Count MPV Neut % (Auto) Lymph % (Auto) [place] % (Auto) Eos % (Auto) Baso % (Auto) Neut # (Auto) Lymph # (Auto) [place] # (Auto) Eos # (Auto) Baso # (Auto) WBC Differential Differential Comment Sodium Potassium Chloride Carbon Dioxide Anion Gap BUN Creatinine Estimated GFR POC Glucose 119 H 129 H 198 H Random Glucose Calcium Total Bilirubin AST ALT Alkaline Phosphatase Total Protein Albumin Triglycerides Cholesterol LDL Cholesterol, Calc HDL Cholesterol Cholesterol/HDL Ratio 08/29/18 08/29/18 08/29/18 06:08 06:08 06:08 CBC w Diff Auto diff final WBC 8.8 RBC 5.01 Hgb 14.2 Hct 41.6 MCV 83.1 MCH 28.4 MCHC 34.2 RDW 13.0 Plt Count 330 MPV 7.9 Neut % (Auto) 60.5 Lymph % (Auto) 30.2 [place] % (Auto) 5.8 Eos % (Auto) 2.7 Baso % (Auto) 0.8 Neut # (Auto) 5.3 Lymph # (Auto) 2.7 [place] # (Auto) 0.5 Eos # (Auto) 0.2 Baso # (Auto) 0.1 WBC Differential . Differential Comment . Sodium 145 Potassium 3.7 Chloride 112 H Carbon Dioxide 26.5 Anion Gap 7 BUN 14 Creatinine 0.77 Estimated GFR 75 L POC Glucose Random Glucose 129 H Calcium 8.4 L Total Bilirubin 0.7 AST 13 L ALT 30 Alkaline Phosphatase 98 Total Protein 6.7 Albumin 3.4 Triglycerides 227 H Cholesterol 187 LDL Cholesterol, Calc 109 H HDL Cholesterol 33.1 L Cholesterol/HDL Ratio 5.64 - Imaging Impressions Carotid Doppler Study 08/28/18 00:00 CONCLUSION: 1. Right Internal Carotid Artery: No significant plaque or narrowing. 2. Left Internal Carotid Artery: No significant plaque or narrowing. Assessment and Plan - Plan Ms. Garcia is a pleasant 68-year-old female with a history of diabetes mellitus who presented to the emergency department due to bilateral upper extremity intermittent tingling and pain as well as forgetfulness. She also had some dysarthria and word finding difficulties. CT scan shows no acute abnormalities. Bilateral upper extremity tingling, pain Dysarthria -CT head unremarkable for no acute findings. -Patient is unable to undergo MRI studies. She would prefer to do open MRI in the outpatient setting. -Continue aspirin, statin. Neurology consult pending. -Patient's symptoms are very likely due to hypoglycemic episode rather than a stroke. Diabetes mellitus -Patient takes Tresiba as well as Tradjenta -We will continue sliding scale insulin while she is in the hospital. Goal blood glucose 140-180. Hypertension Hyperlipidemia -Patient is currently on permissive hypertension due to possible stroke. However the suspicion for stroke is low. -Will start patient on captopril to maintain blood pressure around 160s systolic. -Continue statin. -Patient takes diltiazem 120 mg daily. However she does not have any history of atrial fibrillation. She was a started on this medication for blood pressure. -Carvedilol may be a better choice to control tachycardia as well as hypertension. Full code, SCDs.
[2018-08-29] MEDS ORDERED: dilTIAZem CD 120 MG Capsule PO SCH (13:00)
[2018-08-29 13:17] VITALS: TEMP 97.2
[2018-08-29 13:19] VITALS: BP 178/70; PULSE 72
--- NOTE | 2018-08-29 16:25 | P.DS ---
Date of admission: 08/28/18 00:28 Primary care physician: Sarthak Quiles III, MD Attending physician on discharge: Wandy Diane Anticipated date of discharge: 08/29/18 Brief History from admission: Ms. Bowen is a pleasant 68-year-old female with a history of diabetes mellitus, hypertension, arthritis who presents to the emergency department on 08/27/2018 due to intermittent numbness of her left and right upper extremities as well as significant diaphoresis. She went to [employer] to shop. She experienced more than usual forgetfulness as well. When she was at the [employer] parking lot, she was extremely diaphoretic. Her blood glucose was in the 120s. Later in the day at home she was having difficulty speaking and finding words. She was mispronouncing words. And subsequently her neighbor came to help and patient presented to the emergency department after that. Patient denies any chest pain, shortness of breath, fever or chills. Denies any changes in bowel or bladder habits. Past medical history: Ophthalmic migraine, thyroid nodules, GERD, diabetes mellitus, hypertension, hyperlipidemia, arthritis Past surgical history: Cholecystectomy, partial hysterectomy, appendectomy Social history: Patient denies using tobacco or alcohol. Family history: Mother has mental illness. Dad had COPD and stroke. Patient update on day of discharge: Patient is doing well. No acute concerns. Echo was done, official report pending. However, her EF is normal and no acute findings. DS: Medications - Discharge Medications Prescriptions: amlodipine 10 mg PO DAILY 30 Days #60 tab aspirin 325 mg PO DAILY #90 tab atorvastatin [Lipitor] 40 mg PO HS #90 tab DS: Summary Hospital Course: Ms. Garcia is a pleasant 68-year-old female with a history of diabetes mellitus who presented to the emergency department due to bilateral upper extremity intermittent tingling and pain as well as forgetfulness. She also had some dysarthria and word finding difficulties. CT scan shows no acute abnormalities. Bilateral upper extremity tingling, pain Dysarthria -CT head unremarkable for no acute findings. -Patient is unable to undergo MRI studies. She would prefer to do open MRI in the outpatient setting. -Continue aspirin, statin. Neurology consulted -Patient's symptoms are very likely due to hypoglycemic episode rather than a stroke. -Discussed with Dr. Thibodeaux on 08/28/2018. Will continue pt on Aspirin 325mg Qday. -Switch Simvastatin to Lipitor. -Follow-up with Dr. Thibodeaux in 1-2 weeks. Also follow-up at [facility] for possible loop recorder placement. Diabetes mellitus -Patient takes Tresiba as well as Tradjenta -We will continue sliding scale insulin while she is in the hospital. Goal blood glucose 140-180. -Upon discharge, start lower dose of Tresiba 15 units Qday and then titrate as needed. Hypertension Hyperlipidemia -Advised patient to hold off using Cardizem. Patient is advised to take amlodipine 5 mg initially then 10 mg if necessary. -Continue ARB. -Continue Lipitor and discontinue simvastatin. Full code. Discussed at length about all the medication changes with patient and her daughter. - Time Spent with Patient Total time spent providing and/or coordinating discharge services: Less than 30 minutes - Quality: VTE Deep Vein Thrombosis/Pulmonary Embolism Present on Admission: No Exam Vital signs: Vital Signs 08/28/18 20:00 08/28/18 20:10 08/29/18 00:00 Temperature 97.3 F L 97.8 F Pulse Rate 72 72 65 Respiratory Rate 18 18 Blood Pressure 184/84 H 158/68 H Pulse Oximetry 97 94 L 08/29/18 00:09 08/29/18 04:00 08/29/18 08:00 Temperature 96.6 F L Pulse Rate 58 L 59 L 84 Respiratory Rate 20 Blood Pressure 165/77 H Pulse Oximetry 99 08/29/18 12:00 08/29/18 12:50 Temperature 97.2 F L Pulse Rate 70 72 Respiratory Rate 20 Blood Pressure 182/82 H 178/70 H Pulse Oximetry 99 Intake & Output 08/28/18 08/29/18 08/29/18 18:59 06:59 18:59 Intake Total 1000 / 1000 1000 / 1000 1000 / 1000 Balance 1000 / 1000 1000 / 1000 1000 / 1000 Weight 75.4 kg Intake: IV 1000 / 1000 1000 / 1000 1000 / 1000 NS Inj 1,000 ML @ 100 mls/hr IV 1000 / 1000 1000 / 1000 1000 / 1000 .CONT .Q10H CANDIDO Rx#:[id number] Other: # Voids 2 3 Date of Last Bowel Movement 08/27/18 # Bowel Movements 0 Narrative: GENERAL: Alert, NAD. SKIN: Warm and dry. HEAD: Normocephalic. EYES: No scleral icterus. No injection or drainage. NECK: Supple, trachea midline. No JVD or lymphadenopathy. CARDIOVASCULAR: Regular rate and rhythm without murmurs, gallops, or rubs. RESPIRATORY: Breath sounds equal bilaterally. No accessory muscle use. GASTROINTESTINAL: Abdomen soft, non-tender, nondistended. MUSCULOSKELETAL: No cyanosis, or edema. BACK: Nontender without obvious deformity. No CVA tenderness. Results Procedures completed during hospitalization: Echocardiogram 08/29/2018. Official report pending. Labs on day of discharge: Labs from last 24 hours 08/29/18 08/29/18 08/29/18 13:07 06:08 06:08 CBC w Diff Auto diff final WBC 8.8 RBC 5.01 Hgb 14.2 Hct 41.6 MCV 83.1 MCH 28.4 MCHC 34.2 RDW 13.0 Plt Count 330 MPV 7.9 Neut % (Auto) 60.5 Lymph % (Auto) 30.2 Story % (Auto) 5.8 Eos % (Auto) 2.7 Baso % (Auto) 0.8 Neut # (Auto) 5.3 Lymph # (Auto) 2.7 Story # (Auto) 0.5 Eos # (Auto) 0.2 Baso # (Auto) 0.1 WBC Differential . Differential Comment . Sodium 145 Potassium 3.7 Chloride 112 H Carbon Dioxide 26.5 Anion Gap 7 BUN 14 Creatinine 0.77 Estimated GFR 75 L POC Glucose 196 H Random Glucose 129 H Calcium 8.4 L Total Bilirubin 0.7 AST 13 L ALT 30 Alkaline Phosphatase 98 Total Protein 6.7 Albumin 3.4 Triglycerides Cholesterol LDL Cholesterol, Calc HDL Cholesterol Cholesterol/HDL Ratio Urine Color Urine Clarity Urine pH Ur Specific Clay Urine Protein Urine Glucose (UA) Urine Ketones Urine Occult Blood Urine Nitrate Urine Bilirubin Urine Urobilinogen Ur Leukocyte Esterase Urine RBC Urine WBC Urine WBC Clumps Ur Squamous Epith Cells Micro UA Comment Ur Microscopic Review Urine Culture Comments 08/29/18 08/28/18 08/28/18 06:08 21:34 16:44 CBC w Diff WBC RBC Hgb Hct MCV MCH MCHC RDW Plt Count MPV Neut % (Auto) Lymph % (Auto) Story % (Auto) Eos % (Auto) Baso % (Auto) Neut # (Auto) Lymph # (Auto) Story # (Auto) Eos # (Auto) Baso # (Auto) WBC Differential Differential Comment Sodium Potassium Chloride Carbon Dioxide Anion Gap BUN Creatinine Estimated GFR POC Glucose 198 H 129 H Random Glucose Calcium Total Bilirubin AST ALT Alkaline Phosphatase Total Protein Albumin Triglycerides 227 H Cholesterol 187 LDL Cholesterol, Calc 109 H HDL Cholesterol 33.1 L Cholesterol/HDL Ratio 5.64 Urine Color Urine Clarity Urine pH Ur Specific Clay Urine Protein Urine Glucose (UA) Urine Ketones Urine Occult Blood Urine Nitrate Urine Bilirubin Urine Urobilinogen Ur Leukocyte Esterase Urine RBC Urine WBC Urine WBC Clumps Ur Squamous Epith Cells Micro UA Comment Ur Microscopic Review Urine Culture Comments 08/28/18 03:00 CBC w Diff WBC RBC Hgb Hct MCV MCH MCHC RDW Plt Count MPV Neut % (Auto) Lymph % (Auto) Story % (Auto) Eos % (Auto) Baso % (Auto) Neut # (Auto) Lymph # (Auto) Story # (Auto) Eos # (Auto) Baso # (Auto) WBC Differential Differential Comment Sodium Potassium Chloride Carbon Dioxide Anion Gap BUN Creatinine Estimated GFR POC Glucose Random Glucose Calcium Total Bilirubin AST ALT Alkaline Phosphatase Total Protein Albumin Triglycerides Cholesterol LDL Cholesterol, Calc HDL Cholesterol Cholesterol/HDL Ratio Urine Color Yellow Urine Clarity Clear Urine pH 6.0 Ur Specific Clay 1.010 Urine Protein Negative Urine Glucose (UA) Negative Urine Ketones Negative Urine Occult Blood Negative Urine Nitrate Negative Urine Bilirubin Negative Urine Urobilinogen 0.2 Ur Leukocyte Esterase Moderate H Urine RBC 0-3 Urine WBC 21-50 H Urine WBC Clumps Moderate H Ur Squamous Epith Cells 0-5 Micro UA Comment Culture indicated Ur Microscopic Review Microscopic reviewed Urine Culture Comments Culture indicated Preliminary micro results at discharge 08/28/18 03:00 Urine Culture - Preliminary Clean Catch Urine gram negative rods gram positive cocci - Impressions ITS Impressions Head CT 08/27/18 22:36 CONCLUSION: 1. Negative CT Head non contrast. . Carotid Doppler Study 08/28/18 00:00 CONCLUSION: 1. Right Internal Carotid Artery: No significant plaque or narrowing. 2. Left Internal Carotid Artery: No significant plaque or narrowing. Discharge Plan - Discharge Disposition Patient Disposition: 01 Discharge Home - Discharge Condition Condition: Stable - Discharge Order Discharge Orders: Discharge Order (Routine); Ordered 08/29/18 Ordered By: Wandy Diane - Discharge Details Anticipated Discharge Date: 08/29/18 Discharge Comment: Discharge AFTER Echo is completed. Will be done by 1PM. - Physicians Team Primary Care Provider: Sarthak Quiles III Attending Provider: Wandy Diane Other Providers: Scotty Thiobdeaux MD, PhD
--- NOTE | 2018-08-29 17:41 | ECHRPT ---
Indication: CVA/TIA CONCLUSIONS Normal left ventricular size. Wall thickness is normal. The left ventricular systolic function is low normal with an estimated ejection fraction in the rang e of 50- 55%. Trace mitral valve regurgitation. The estimated pulmonary arterial pressure is 37 mmHg. BP: / HR: Rhythm: MEASUREMENTS (Male / Female) Normal Values Technical Quality: 2D ECHO LV Diastolic Diameter PLAX 4.5 cm 4.2 - 5.9 / 3.9 - 5.3 cm LV Systolic Diameter PLAX 2.0 cm IVS Diastolic Thickness 0.9 cm 0.6 - 1.0 / 0.6 - 0.9 cm LVPW Diastolic Thickness 0.9 cm 0.6 - 1.0 / 0.6 - 0.9 cm LV Relative Wall Thickness 0.4 RV Internal Dim ED PLAX 2.3 cm LVOT Diameter 1.4 cm Aortic Root Diameter 2.1 cm LA Systolic Diameter LX 3.4 cm 3.0 - 4.0 / 2.7 - 3.8 cm LV Ejection Fraction MOD 4C 49.2 % LV Ejection Fraction 4C AL 48.6 % M-MODE Aortic Root Diameter MM 2.4 cm LA Systolic Diameter MM 3.8 cm LA Ao Ratio MM 1.6 AV Cusp Separation MM 1.8 cm DOPPLER AV Peak Velocity 145.5 cm/s AV Peak Gradient 8.5 mmHg LVOT Peak Velocity 115.0 cm/s LVOT Peak Gradient 5.3 mmHg AV Area Cont Eq pk 1.2 cm Mitral E Point Velocity 94.3 cm/s Mitral A Point Velocity 105.0 cm/s Mitral E to A Ratio 0.9 LV E' Lateral Velocity 6.7 cm/s Mitral E to LV E' Lateral Ratio 14.0 LV E' Septal Velocity 6.8 cm/s Mitral E to LV E' Septal Ratio 13.8 TV Peak Velocity 191.0 cm/s TR Peak Velocity 243.0 cm/s TR Peak Gradient 23.6 mmHg Right Atrial Pressure 10.0 mmHg Pulmonary Artery Systolic Pressu 33.6 mmHg Right Ventricular Systolic Press 33.6 mmHg PV Peak Velocity 82.9 cm/s PV Peak Gradient 2.7 mmHg FINDINGS LEFT VENTRICLE Normal left ventricular size. Wall thickness is normal. The left ventricular systolic function is low normal with an estimated ejection fraction in the rang e of 50- 55%. RIGHT VENTRICLE Normal right ventricular size and systolic function. LEFT ATRIUM The left atrial size is normal. RIGHT ATRIUM The right atrial size is normal. ATRIAL SEPTUM Normal atrial septal thickness without atrial level shunting by limited color doppler interrogation. AORTA The aortic root and proximal ascending aorta are normal in size on limited imaging. MITRAL VALVE Trace mitral valve regurgitation. AORTIC VALVE Trileaflet aortic valve. No aortic valve stenosis or regurgitation. TRICUSPID VALVE The estimated pulmonary arterial pressure is 37 mmHg. PULMONARY VALVE No pulmonary valve regurgitation or stenosis. VESSELS The inferior vena cava is normal in size. PERICARDIUM No pericardial effusion. Evelio Kelley MD, FACC (Electronically Signed) Final Date:29 August 2018 17:40
== END 2018-08-29 15:44 | disposition home or self-care (01) ==
LOC: PHED 22:14 → PHEDA 22:14 → PH3 08-28 03:16
PROVIDERS: ADMIT Hospitalist; ATTEND Hospitalist